=== PATIENT | female | born 1965 | race Caucasian/White ===

== ENCOUNTER 2016-10-16 05:55 | Day surgery (SDC) | payer BC ==
--- NOTE | ~2016-10-16 | EGD ---
EGD REPORT [facility] [address] [address] NAME: LUCINDA FAY : 63 STATUS : [place] [facility] [place] PAT#: [id number] AGE: 51 ADM/REG DATE : 10/16/16 MR#: [id number] REPORT SERV DATE: 10/16/16 DICTATED BY: DATE: REPORT STATUS : Draft TRANSCRIBED BY: [employer] DATE: 10/16/16 [facility] Patient Name: Lucinda Fay Date of : 1965 Attending MD: SALAZAR SLATER MD Procedure Date No Time: 10/16/2016 Procedure: Upper GI endoscopy Indications: Dysphagia, Surveillance for malignancy due to personal history of Aragon's esophagus Referring MD: ANNA GOMES JR. Medicines: Monitored Anesthesia Care Complications: No immediate complications. Procedure: Pre-Anesthesia Assessment: - ASA Grade Assessment: III - A patient with severe systemic disease. After obtaining informed consent, the endoscope was passed under direct vision. Throughout the procedure, the patient's blood pressure, pulse, and oxygen saturations were monitored continuously. The GIF [id number] was introduced through the mouth, and advanced to the third part of duodenum. The upper GI endoscopy was accomplished without difficulty. The patient tolerated the procedure well. Findings: A small hiatus hernia was present. The esophagus and gastroesophageal junction were examined with white light and narrow band imaging (NBI) from a forward view and retroflexed position. There were esophageal mucosal changes consistent with short-segment Aragon's esophagus, extending from the upper extent of the gastric folds which were at 35 cm from the incisors to the Z-line which was at 36 cm from the incisors. No visible abnormalities were present. The maximum longitudinal extent of these esophageal mucosal changes was 1 cm in length. Biopsies were taken with a cold forceps for histology. An overlying Schatzki ring was well defined. No other significant abnormalities were identified in a careful examination of the esophagus. There is no endoscopic evidence of esophagitis, ulcerations or varices in the entire esophagus. A small amount of food (residue) was found on the greater curvature of the gastric body. No other significant abnormalities were identified in a careful examination of the stomach. There is no endoscopic evidence of inflammation, mucosal abnormalities, ulceration, varices or stenosis in the entire examined stomach. EGD REPORT [id number] [place]. [address] NAME: LUCINDA FAY : [birth year] STATUS : REG [facility]#: [id number] AGE: 51 ADM/REG DATE : 10/16/16 MR#: [id number] REPORT SERV DATE: 10/16/16 DICTATED BY: DATE: REPORT STATUS : Draft TRANSCRIBED BY: [employer] DATE: 10/16/16 The examined duodenum was normal. There is no endoscopic evidence of inflammation, mucosal abnormalities or ulceration in the entire examined duodenum. The cardia and gastric fundus were normal on retroflexion. A guidewire was placed and the scope was withdrawn. Dilation was performed in the entire esophagus with a Savary dilator with no resistance at 57 Fr. Impression: - Hiatus hernia. - Schatzki ring. - Esophageal mucosal changes consistent with short-segment Aragon's esophagus. Biopsied. - A small amount of food (residue) in the stomach. - Normal examined duodenum. - Dilation attempted in the entire esophagus. Successful. Recommendation: - Patient has a contact number available for emergencies. The signs and symptoms of potential delayed complications were discussed with the patient. Return to normal activities tomorrow. Written discharge instructions were provided to the patient. - Regular diet. - Discharge patient to home. - Continue present medications. - Await pathology results. - Repeat the upper endoscopy in 3 years for surveillance. Procedure Code(s): --- Professional --- 32929, Esophagogastroduodenoscopy, flexible, transoral; with insertion of guide wire followed by passage of dilator(s) through esophagus over guide wire 52963, Esophagogastroduodenoscopy, flexible, transoral; with biopsy, single or multiple Diagnosis Code(s): --- Professional --- K44.9, Diaphragmatic hernia without obstruction or gangrene K22.70, Aragon's esophagus without dysplasia R13.10, Dysphagia, unspecified CPT copyright 2013 [employer]. All rights reserved. The codes documented in this report are preliminary and upon label coder review may be revised to meet current compliance requirements. EGD REPORT [facility] [address] [place]. [address] NAME: LUCINDA FAY : [birth year] STATUS : [place] [facility] [place] PAT#: [id number] AGE: 51 ADM/REG DATE : 10/16/16 MR#: [id number] REPORT SERV DATE: 10/16/16 DICTATED BY: DATE: REPORT STATUS : Draft TRANSCRIBED BY: [employer] DATE: 10/16/16 SALAZAR SLATER MD 10/16/2016 7:18 AM This report has been signed electronically. Number of Addenda: 0 Note Initiated On: 10/16/2016 6:56 AM Scope Withdrawal Time 0 hours 0 minutes [address] [place] [address] [place] [address]
[~2016-10-16 05:55] MED LIST: AMITIZA8 MCG PO; APIDRA SC; ASAB PO; CEFT5 PO; DEXILANT PO; HYDROCHLOROT25 MG PO; KAPIDEX60 MG PO; KDUR20 PO; LANTUS SC; LEVOTHYROXIN25 MCG PO; LEVOTHYROXIN50 MCG PO; LINZESS; LINZESS 290 M290 MCG PO; NOVLOGPUMP SC; NOVOLOG SC; NOVREGPUMP SC; ZETIA PO
== END 2016-10-16 23:59 | disposition home or self-care (01) ==
LOC: DMU 05:55
PROVIDERS: Internal Medicine Gastroenterology
PROC: 0DB58ZX Excision of Esophagus, Via Natural or Artificial Opening Endoscopic, Diagnostic (ICD-10-PCS; principal; 2016-10-16 07:30)
PROC: 0D758ZZ Dilation of Esophagus, Via Natural or Artificial Opening Endoscopic (ICD-10-PCS; 2016-10-16 07:30)
DX: K44.9 Diaphragmatic hernia without obstruction or gangrene (principal); K22.70 Barrett's esophagus without dysplasia; R13.10 Dysphagia, unspecified; I73.9 Peripheral vascular disease, unspecified; Z79.4 Long term (current) use of insulin; Z79.82 Long term (current) use of aspirin; Z79.899 Other long term (current) drug therapy; Z88.5 Allergy status to narcotic agent; Z98.891 History of uterine scar from previous surgery; K21.9 Gastro-esophageal reflux disease without esophagitis; L40.9 Psoriasis, unspecified; Z90.89 Acquired absence of other organs; E03.9 Hypothyroidism, unspecified; M19.90 Unspecified osteoarthritis, unspecified site; Z95.5 Presence of coronary angioplasty implant and graft
CPT/HCPCS: 82962; 88305